=== PATIENT | male | born 1995 | race Caucasian/White ===

== ENCOUNTER 2018-04-10 17:56 | Emergency (ER) | payer BC, OTHER ==
[~2018-04-10] VITALS: Ht 167.6 cm; Wt 65.7 kg
[~2018-04-10 17:56] MED LIST: CEPH-571 PO; CYCL-1 PO; HYDR-4383 PO
[2018-04-10] MEDS ORDERED: CYCL-1 PO (19:07)
[2018-04-10] MEDS ORDERED: ketorolac tromethamine 15mg/ml inj. IM ONE (19:10)
[2018-04-10 19:34] VITALS: BP 122/64
== END 2018-04-10 19:40 | disposition home or self-care (01) ==
LOC: ER 17:56
DX: S39.012A Strain of muscle, fascia and tendon of lower back, initial encounter (principal); X58.XXXA Exposure to other specified factors, initial encounter; Y93.89 Activity, other specified; Y92.89 Other specified places as the place of occurrence of the external cause; Y99.9 Unspecified external cause status
CPT/HCPCS: 96372; 99283; J1885